=== PATIENT | female | born 1985 | race Caucasian/White ===

== ENCOUNTER 2018-11-14 08:15 | Outpatient (CLI) | payer OTHER ==
--- NOTE | 2018-11-14 09:35 | ULT ---
ABDOMINAL ULTRASOUND: History: Abdominal pain. FINDINGS: Real-time imaging of the upper abdomen shows that the gallbladder has been removed. Common duct is 2 mm. Visualized liver parenchyma shows no focal findings. Liver measures 4.6 cm in length. The spleen is 9.8 cm. The pancreas, abdominal aorta and IVC regions are normal in appearance. Right and left kidneys are normal in size and not obstructed. IMPRESSION: Post cholecystectomy change. Otherwise, unremarkable exam. POS: RODOLFO
== END 2018-11-14 08:16 | disposition home or self-care (01) ==
LOC: BICULT 08:15
PROVIDERS: ATTEND Nurse Practitioner Family
DX: R10.9 Unspecified abdominal pain (principal); Z90.49 Acquired absence of other specified parts of digestive tract
CPT/HCPCS: 76700

== ENCOUNTER 2019-04-24 10:59 | Outpatient (CLI) | payer OTHER ==
--- NOTE | 2019-04-24 11:51 | CT ---
CT ABDOMEN AND PELVIS WITH IV CONTRAST 04/24/2019 CLINICAL INFORMATION: Left upper quadrant abdominal pain on and off for a few years. History of prior cholecystectomy. COMPARISON: None. Technique: Multiple contiguous axial CT images are obtained through the abdomen and pelvis with IV contrast. Cor onal reformatted images are provided. FINDINGS: Lower Chest: within normal limits. Vessels: Abdominal aorta is normal in caliber without evidence of an aortic dissection. Abdomen: Portal vein:Patent Gallbladder: Evidence of prior cholecystectomy. Liver: within normal limits. Spleen: within normal limits. Pancreas: within normal limits. Adrenals: within normal limits. Kidneys: within normal limits. Bowel: Normal caliber. Appendix: The appendix is visualized and normal in caliber. Peritoneum: No ascites or free air; no fluid collection. Mesentery and Retroperitoneum: No enlarged mesenteric or retroperitoneal lymph nodes. Abdominal Wall: within normal limits. Pelvis: Reproductive Organs: Small low-density focus is seen in the right aspect of the cervix probably relat ed to a nabothian cyst. There is a 2.4 cm hypodense cystic structure seen posterior to the uterus which may represent the patient's left ovary with associated left ovarian cyst. There is diminished a ttenuation in the endometrial canal which may be related to the stage of the patient's menstrual cycle. Clinical correlation is suggested. Pelvis within normal limits. Bladder: within normal limits. Bones: within normal limits. IMPRESSION: 1. Hypodense cystic structure posterior to the body of the uterus probably related to patient's left ovary with associated ovarian cyst. 2. Hypodensity in the endometrial canal probably due to the stage of the patient's menstrual cycle. C linical correlation suggested. 3. Evidence of cholecystectomy. 4. No acute findings are seen in the abdomen or pelvis.
== END 2019-04-24 11:00 | disposition home or self-care (01) ==
LOC: BICCT 10:59
PROVIDERS: ATTEND Internal Medicine
DX: R13.10 Dysphagia, unspecified (principal); R10.12 Left upper quadrant pain; N83.209 Unspecified ovarian cyst, unspecified side; Z90.49 Acquired absence of other specified parts of digestive tract
CPT/HCPCS: 74177